=== PATIENT | male | born 1975 | race Hispanic/Latino ===

== ENCOUNTER 2023-02-25 21:01 | Emergency (ER) | payer OTHER ==
[~2023-02-25] VITALS: Ht 167.6 cm; Wt 90.7 kg
[2023-02-25] MEDS ORDERED: KETOROLAC TROMETHAMINE 60 MG/2 ML VIAL ONE (21:54)
[2023-02-25] MEDS ORDERED: KETOROLAC TROMETHAMINE 60 MG/2 ML VIAL IM ONE (22:00)
[2023-02-25] MEDS ORDERED: CELEBREX200 MG PO ×2 (22:43→23:00)
== END 2023-02-25 23:00 | disposition home or self-care (01) ==
LOC: ER 21:06
DX: M79.675 Pain in left toe(s) (principal); M10.9 Gout, unspecified
CPT/HCPCS: 99282; J1885